=== PATIENT | male | born 1995 | race African-American/Black ===

== ENCOUNTER 2016-09-29 18:05 | Emergency (ER) | payer MEDICAID ==
[2016-09-29] MEDS ORDERED: KEPPRA 500 MG in SOD CHLOR 0.9% INJ 100 ML IV ONE (20:45)
[2016-09-29] MEDS ORDERED: SODIUM CHLORIDE 0.9% 500 ML IV ONE (21:12)
== END 2016-09-29 23:17 | disposition home or self-care (01) ==
LOC: ER 18:05
DX: G40.409 Other generalized epilepsy and epileptic syndromes, not intractable, without status epilepticus (principal); Z79.899 Other long term (current) drug therapy; F17.290 Nicotine dependence, other tobacco product, uncomplicated
CPT/HCPCS: 36415; 80053; 80177; 81003; 85025; 96374

== ENCOUNTER 2016-10-03 21:35 | Emergency (ER) | payer MEDICAID ==
[2016-10-03] MEDS ORDERED: Ibuprofen 400 MG TAB ONE (23:21)
== END 2016-10-04 00:27 | disposition home or self-care (01) ==
LOC: ER 21:35
DX: S46.912A Strain of unspecified muscle, fascia and tendon at shoulder and upper arm level, left arm, initial encounter (principal); S40.012A Contusion of left shoulder, initial encounter; X50.9XXA Other and unspecified overexertion or strenuous movements or postures, initial encounter

== ENCOUNTER 2016-10-11 15:31 | Emergency (ER) | payer MEDICAID | END 2016-10-11 16:09 | disposition home or self-care (01) | LOC: ER 15:31 | DX: G40.309 Generalized idiopathic epilepsy and epileptic syndromes, not intractable, without status epilepticus (principal) ==